=== PATIENT | female | born 1985 ===

== ENCOUNTER 2020-05-25 22:47 | Outpatient (CLI) | payer OTHER ==
[2020-05-25 23:21] VITALS: BP 116/75
== END 2020-05-26 00:35 | disposition home or self-care (01) ==
LOC: TRG 22:47 → APU 23:25 → TRG 05-26 00:35
PROVIDERS: ATTEND Obstetrics & Gynecology
DX: O36.8130 Decreased fetal movements, third trimester, not applicable or unspecified (principal); Z3A.39 39 weeks gestation of pregnancy
CPT/HCPCS: 59025

== ENCOUNTER 2020-06-22 11:18 | Outpatient (CLI) | payer OTHER ==
[2020-06-22 11:56] VITALS: BP 113/84
== END 2020-06-22 12:38 | disposition home or self-care (01) ==
LOC: TRG 11:18 → APU 11:18 → TRG 12:38
PROVIDERS: ATTEND Obstetrics & Gynecology
DX: O62.4 Hypertonic, incoordinate, and prolonged uterine contractions (principal); Z3A.38 38 weeks gestation of pregnancy
CPT/HCPCS: 59025

== ENCOUNTER 2020-06-23 08:01 | Inpatient (IN) | payer OTHER ==
[2020-06-23] MEDS ORDERED: ePHEDrine SULFATE 50 MG/1 ML INJ IV PRN ×2 (08:48→20:26)
[2020-06-23] MEDS ORDERED: LIDOCAINE (2%) 20 MG/1 ML VIAL 20 ML MDV INFILTRATI NR (08:48)
[2020-06-23] MEDS ORDERED: TERBUTALINE 1 MG/1 ML INJ SUB-Q PRN (08:48)
[2020-06-23] MEDS ORDERED: OXYTOCIN DRIP 30 UNITS/500 ML BAG IV SCH (09:00)
--- NOTE | 2020-06-23 10:22 | Ultrasound Report ---
Limited OB ultrasound INDICATION: Twin gestation, evaluate position FINDINGS: This is a twin gestation. Both fetuses are in cephalic presentation. heart rate for twin A is 1 41 bpm and twin B is 126 bpm. IMPRESSION: Both of the fetuses are in cephalic presentation. Signer Name: Gerson Espinoza MD Signed: 06/23/2020 10:18 AM Workstation Name: [id number]
--- NOTE | 2020-06-23 10:23 | History and Physical Report ---
History of Present Illness Date of examination: 06/23/20 Date of admission: 06/23/20 Chief complaint: " I'm here for an induction" History of present illness: 35 y/o Tanzanian speaking female @ 39 wks presents today for an IOL r/t DI/DI twins. Pt denied LOF or VB. She admitted to active x 2 and denied any other complaints. Pt initiated her pnc @ [facility] @ 9.2 wks. She was co-managed by [facility] r/t twin gestation. She has had an uneventful preg other than ASCUS with + HPV and a failed 1hr gtt but pos 3 hr gtt. Pt has a hx of anemia hgb 8.8 on 06/02/20. Pt received Fe for anemia and will undergo colpo pp. Neg surgical /social hx. Family hx of HTN and DM. She was admitted to L&D for an IOL. POC was notified. 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 Family/Genetic History: hypertension Social history: no significant social history - Obstetrical History Expected Date of Delivery: 06/30/20 Actual Gestation: 39 Week(s) 0 Day(s) : 4 Para: 2 Hx # Term Pregnancies: 2 Number of Pregnancies: 0 Spontaneous Abortions: 1 Induced : 0 Number of Living Children: 2 Medications and Allergies Allergies Allergy/AdvReac Type Severity Reaction Status Date / Time No Known Allergies Allergy Unverified 05/25/20 23:54 Active Meds: Active Medications Ephedrine Sulfate (Ephedrine Sulfate 50 Mg/1 Ml Inj) 10 mg IV Q2M PRN PRN Reason: Hypotension Oxytocin/Sodium Chloride (Pitocin/Ns 30 Unit/500ml) 30 units in 500 mls @ 2 mls/hr IV TITR REZA; Protocol Lactated Ringer's (Lactated Ringers) 1,000 mls @ 125 mls/hr IV DIRECT REZA Lidocaine (Lidocaine (2%) 20 Mg/1 Ml Vial 20 Ml Mdv) 20 ml INFILTRATI ONCE NR Stop: 06/23/20 12:00 Mineral Oil (Mineral Oil 30 Ml Oral Liqd) 30 ml PO QHS PRN PRN Reason: Constipation Terbutaline Sulfate (Terbutaline 1 Mg/1 Ml Inj) 0.25 mg SUB-Q ONCE PRN PRN Reason: Hyperstimulation/Hypertonicity Review of Systems All systems: negative Eyes: deferred Ears, nose, mouth and throat: deferred Breasts: normal Rectal Exam: deferred - Vital Signs Vital signs: Vital Signs Pulse Pulse Ox 106 H 100 06/23/20 08:57 06/23/20 08:57 Temp Pulse Resp BP Pulse Ox 98.2 F 86 16 118/83 100 06/23/20 08:59 06/23/20 09:37 06/23/20 08:59 06/23/20 09:37 06/23/20 09:37 - Physical Exam Breasts: Positive: normal Abdomen: Positive: normal appearance, soft, normal bowel sounds, other (gravid) Genitourinary (Female): Positive: normal external genitalia, normal perenium Vulva: both: normal Vagina: Positive: normal moisture Uterus: Positive: enlarged, normal contour, other (gravid) Adnexa: both: normal Anus/Rectum: Positive: normal perianal skin Extremities: Positive: normal - Obstetrical FHR: auscultation normal, category 1 Uterine Contraction Monitor Mode: External Cervical Dilatation: 4.5 Cervical Effacement Percentage: 70 station: -2 Uterine Contraction Frequency (min): irreg Uterine Contraction Pattern: Irregular Uterine Tone Measurement Phase: Resting Uterine Contraction Intensity: Mild Results All other labs normal. Assessment and Plan A:IUP@ 39 wks DI/DI vertex twins Anemia GBS neg P: Admit to L&D for IOL US for position Continuous monitoring Start Pitocin per orders/protocal once position identified Anticipate Will notify POC - Patient Problems (1) Term Current Visit: Yes Status: Acute (2) Twin gestation in third trimester Current Visit: Yes Status: Acute (3) Anemia Current Visit: Yes Status: Acute
[2020-06-23] MEDS: LACTATED RINGERS 1,000 ML IV SCH ×2 (10:51→18:38)
[2020-06-23] MEDS ORDERED: SODIUM CHLORIDE 0.9% 500 ML 500 ML IV ONE (11:27)
[2020-06-23 11:33] LABS: Hematocrit 29.7 % (30.3-42.9); Hemoglobin 9.2 gm/dl (10.1-14.3); Mean Corpuscular HGB Conc 31 % (30-34); Mean Corpuscular Volume 74 fl (79-97); Platelet Count 252 K/mm3 (140-440); Red Blood Count 4.04 M/mm3 (3.65-5.03); Red Cell Distribution Width 17.9 % (13.2-15.2)
--- NOTE | 2020-06-23 17:26 | Progress Note ---
Subjective - Subjective Date of service: 06/23/20 Interval history: AROM clear fluid cervix 6cm/90/-1 tracing category 1x2 continue current management IUPC, FSE placed with no complication Ajit Berrios MD Objective - Vital Signs Vital Signs: Vital Signs - 12hr 06/23/20 06/23/20 06/23/20 08:57 08:58 08:59 Temperature 98.2 F Pulse Rate 106 H 96 H 91 H Respiratory 16 Rate Blood Pressure 120/90 Blood Pressure 120/90 [Left] O2 Sat by Pulse 100 100 Oximetry 06/23/20 06/23/20 06/23/20 09:02 09:07 09:12 Temperature Pulse Rate 91 H 109 H 98 H Respiratory Rate Blood Pressure Blood Pressure [Left] O2 Sat by Pulse 100 100 99 Oximetry 06/23/20 06/23/20 06/23/20 09:17 09:18 09:22 Temperature Pulse Rate 78 92 H 94 H Respiratory Rate Blood Pressure Blood Pressure [Left] O2 Sat by Pulse 78 L 93 99 Oximetry 06/23/20 06/23/20 06/23/20 09:27 09:32 09:37 Temperature Pulse Rate 94 H 99 H 86 Respiratory Rate Blood Pressure 118/83 Blood Pressure [Left] O2 Sat by Pulse 99 100 100 Oximetry 06/23/20 11:52 Temperature Pulse Rate 84 Respiratory Rate Blood Pressure Blood Pressure [Left] O2 Sat by Pulse 99 Oximetry - Labs Labs: Abnormal Labs 06/23/20 06/23/20 10:50 10:50 Hgb 9.2 L Hct 29.7 L MCV 74 L MCH 23 L RDW 17.9 H Crossmatch See Detail Laboratory Results - last 24 hr 06/23/20 06/23/20 10:50 10:50 WBC 7.7 RBC 4.04 Hgb 9.2 L Hct 29.7 L MCV 74 L MCH 23 L MCHC 31 RDW 17.9 H Plt Count 252 Blood Type A POSITIVE Antibody Screen Negative Crossmatch See Detail
[2020-06-23] MEDS ORDERED: LIDOCAINE (2%) 20 MG/1 ML VIAL 20 ML MDV INFILTRATI ONE (19:19)
[2020-06-23] MEDS ORDERED: MINERAL OIL 30 ML ORAL LIQD ONE (19:19)
--- NOTE | 2020-06-23 20:22 | Anesthesia Day of Surgery ---
Anesthesia Day of Surgery - Day of Surgery Patient Examined: Yes Patient H&P Reviewed: Yes Patient is NPO: Yes Beta Blockers: No Cardiac Clearance: No Pulmonary Clearance: No Babak's Test: N/A
--- NOTE | 2020-06-23 20:24 | Anesthesia Consultation ---
Anesthesia Consult and Med Hx Date of service: 06/23/20 - Airway Anesthetic Teeth Evaluation: Good ROM Head & Neck: Adequate Mental/Hyoid Distance: Adequate Mallampati Class: Class II Intubation Access Assessment: Probably Good - Pulmonary Exam CTA: Yes - Cardiac Exam Cardiac Exam: RRR - Pre-Operative Health Status ASA Pre-Surgery Classification: ASA2 Proposed Anesthetic Plan: Epidural - Pulmonary Hx Smoking: No Hx Asthma: No Hx Respiratory Symptoms: No SOB: No COPD: No Home Oxygen Therapy: No Hx Pneumonia: No Hx Sleep Apnea: No - Cardiovascular System Hx Hypertension: No Hx Coronary Artery Disease: No Hx Heart Attack/AMI: No Hx Angina: No Hx Percutaneous Transluminal Coronary Angioplasty (PTCA): No Hx Cardia Arrhythmia: No Hx Pacemaker: No Hx Internal Defibrillator: No Hx Valvular Heart Disease: No Hx Heart Murmur: No Hx Peripheral Vascular Disease: No - Central Nervous System Hx Neuromuscular Disorder: No Hx Seizures: No CVA: No Hx Back Pain: No Hx Psychiatric Problems: No - Gastrointestinal Hx Ulcer: No Hx Gastroesophageal Reflux Disease: No - Endocrine Hx Renal Disease: No Hx End Stage Renal Disease: No Hx Cirrhosis: No Hx Liver Disease: No Hx Insulin Dependent Diabetes: No Hx Non-Insulin Dependent Diabetes: No Hx Thyroid Disease: No Hx Hypothyroidism: No Hx Hyperthyroidism: No - Hematic Hx Anemia: No Hx Sickle Cell Disease: No - Other Systems Hx Alcohol Use: No Hx Substance Use: No Hx Cancer: No Hx Obesity: Yes
[2020-06-23] MEDS ORDERED: NALOXONE 2 MG/2 ML INJ IV PRN (20:26)
--- NOTE | 2020-06-23 20:26 | Progress Note ---
Labor Epidural - Labor Epidural Start Time: 19:58 Stop Time: 20:10 Performed by:: KAREN TAVAREZ Procedure: Patient is requesting a laboring epidural for laboring pain. Patient IDed, H&P reviewed, all questions and concerns were answered, and consent was signed. Timeout was performed at bedside. Patient in sitting position. Sterile prep and drape was performed. [3] ml of 1% lidocaine skin wheal at L[3]- L [4]. 18- gauge Tuohy epidural needle was advanced to loss of resistance with air technique. Negative CSF negative blood. Epidural catheter advanced to [12] centimeters. [NEGATIVE] Aspiration [NEGATIVE] test dose. Sterile dressing applied. Patient tolerated procedure.
[2020-06-23] MEDS ORDERED: OXYTOCIN 10 UNIT/1 ML INJ ONE (20:58)
[2020-06-23] MEDS ORDERED: fentaNYL-BUPIV 2 MCG/ML-0.125% 200 MCG/100 ML BAG EPIDURAL SCH (21:00)
[2020-06-23] MEDS ORDERED: METHYLERGONOVINE MALEATE 0.2 MG/ML VIAL IM ONE ×2 (21:23→22:35)
[2020-06-23] MEDS ORDERED: diphenhydrAMINE 25 MG CAP PO PRN (21:49)
[2020-06-23] MEDS ORDERED: MAGNESIUM HYDROXIDE (MOM) ORAL LIQD UDC PO PRN (21:49)
[2020-06-23] MEDS ORDERED: ACETAMINOPHEN 325 MG TAB PO PRN (21:49)
[2020-06-23] MEDS ORDERED: ONDANSETRON 4 MG/2 ML INJ IV PRN (21:49)
[2020-06-23] MEDS ORDERED: KETOROLAC 30 MG/1 ML INJ IV PRN (21:49)
[2020-06-23] MEDS ORDERED: LANOLIN/ZINC/DIMETHICONE (LANSINOH) 7 GM TP PRN (21:49)
[2020-06-23] MEDS ORDERED: PROMETHAZINE 25 MG RECT SUPP PR PRN (21:49)
[2020-06-23] MEDS ORDERED: PROMETHAZINE 25 MG TAB PO PRN (21:49)
[2020-06-23] MEDS ORDERED: WITCH HAZEL/ GLYCERIN PAD TP PRN (21:49)
--- NOTE | 2020-06-23 21:49 | Post Anesthesia Evaluation ---
- Post Anesthesia Evaluation Patient Participated: Yes Airway Patent: Yes Stable Respiratory Function: Yes Nausea/Vomiting: No Temp > 96.8F: Yes Pain Manageable: Yes Adequeate Hydration: Yes Anesthesia Complications: No Block Receding Appropriately: Yes Patient on Ventilator: No
[2020-06-23] MEDS ORDERED: MINERAL OIL 30 ML ORAL LIQD PO PRN (22:00)
--- NOTE | 2020-06-23 22:25 | Procedure Note ---
OB Delivery Note - Delivery Date of Delivery: 06/23/20 Surgeon: CARY COLIN Estimated blood loss: 300cc - Vaginal Delivery presentation: vertex (Baby A vertex. Baby B vertex) Delivery position: OA Intrapartum events: none Delivery augmentation: pitocin Delivery monitor: external FHT, external uterine, internal FHT, internal uterine Route of delivery: ( twin gestation) Delivery placenta: manual Delivery cord: 3 umbilical vessels Episiotomy: none Delivery laceration: none Delivery comments: Twin gestation, vertex/vertex.Patient received excellent spinal anesthesia. She was then noted to be complete and was taken to the OR with double set up. Patient pushed to deliver a viable female (Baby A) over an intact perineum. Spontaneous cry at delivery. Cord clamped and cut and baby handed to waiting NICU staff. Baby B confirmed cephalic with BBOW. AROM clear. FHT confirmed 130-140 through second stage with doppler/US. Patient pushed to deliver baby B with no complications. Nuchal cord reduced at delivery.Spontaneous cry at delivery. Cord clamped and cut and baby handed to waiting NICU staff. An intact placenta with three vessel cordx2 delivered manually. The uterus cleared of all clots and debris. Firm fundus, no lacerations excellent hemostasis. all sponge, needle and instrument counts correctx2 Mom and babies to . No complications. Ajit Colin MD
[2020-06-23] MEDS ORDERED: CARBOPROST TROMETHAMINE 250 MCG/1 ML INJ IM ONE (22:54)
[2020-06-23] MEDS ORDERED: miSOPROStol 200 MCG TAB ONE ×2 (22:54)
[2020-06-23] MEDS ORDERED: CARBOPROST TROMETHAMINE 250 MCG/1 ML INJ IM STA (22:55)
[2020-06-23] MEDS ORDERED: SODIUM CHLORIDE 0.9% 1000 ML 1,000 ML ONE (23:00)
[2020-06-23 23:06] LABS: Hematocrit 27.4 % (30.3-42.9); Hemoglobin 8.6 gm/dl (10.1-14.3)
--- NOTE | 2020-06-24 00:30 | Event Note ---
Date: 06/24/20 I was called for hypotension and acute blood loss. At bedside, patient had lower uterine atony and ~500ml blood clots expressed form the uterus. Intermittent atony noted as I gave bimanual massage. I called for help. I called for two IV lines to be placed and fluids to be running wide open. I called for two units of blood stat. I asked for anesthesia to be called and Abby Bueno CNA was immediatly at bedside. Patient Jared BP was 62/32 and pulse was 118. I called for stat cbc. She was given methergine 0.2mg IMx2 doses, Hemabatex2 doses and cytotec 800mg CT. She was placed in the dorsal lithotomy position. Exam of the cervix and vagina revealed no lacerations. I packed the vagina to tamponade the lower uterine segment for over an hour. Patient remained AAOx3 and hemodynamically stable throughout. Patient had a unit of PRBC's running and CBC had resulted at HB of 8.6. When the vaginal pack was removed there was no acute bleeding and the uterus was firm. Weight of total blood clot and chucks was equivocal to 1800ml. Plan for transfusion of two units PRBCS and repat CBC in AM. Will continue to monitor closely. Ajit Berrios MD
[2020-06-24] MEDS: HYDROcodone/ACETAMINOPHEN 5-325 MG TAB PO PRN ×2 (00:38→07:37)
[2020-06-24] MEDS ORDERED: fentaNYL 100 MCG/2 ML INJ IV ONE (01:32)
[2020-06-24] MEDS ORDERED: LOPERAMIDE 2 MG CAP PO PRN (01:32)
[2020-06-24] MEDS ORDERED: fentaNYL 100 MCG/2 ML INJ ONE (01:32)
[2020-06-24] MEDS: IBUPROFEN 600 MG TAB PO SCH ×3 (05:54→21:37)
[2020-06-24] MEDS ORDERED: PRENATAL VIT27-FE FUMARATE-FOLIC ACID VIT TAB PO SCH (10:00)
--- NOTE | 2020-06-24 12:05 | Progress Note ---
Assessment and Plan A: PP Day #1 s/p vaginal delivery of Twins Delayed Hemorrhage P: Follow Routine Orders Monitor Lochia and H/H Subjective - Subjective Date of service: 06/24/20 Patient reports: appetite normal, voiding normally, pain well controlled, flatus, ambulating normally, other (Denies Dizziness, Fatigue, HAs.. Admits to diarrhea after blood transfusion that has since resolved) [place]: doing well Objective - Vital Signs Latest vital signs: Vital Signs Temp Pulse Resp BP BP Pulse Ox 06/24/20 09:50 98.1 F 82 16 122/60 100 06/24/20 07:25 87 99 06/24/20 07:22 98.1 F 17 06/24/20 07:20 74 114/59 99 06/24/20 05:41 63 120/77 06/24/20 05:30 98.1 F 63 18 120/77 98 06/24/20 05:11 68 120/78 06/24/20 05:00 98.1 F 71 18 118/75 98 06/24/20 04:56 71 118/75 06/24/20 04:41 64 136/68 06/24/20 04:30 98.3 F 76 18 130/91 98 06/24/20 04:27 76 130/91 06/24/20 04:11 68 130/80 06/24/20 04:00 98.3 F 61 20 122/72 99 06/24/20 03:56 61 122/72 06/24/20 03:42 71 128/75 06/24/20 03:30 98.2 F 67 18 133/79 97 06/24/20 03:26 67 133/79 06/24/20 03:11 64 135/78 06/24/20 03:00 98.2 F 68 20 136/81 98 06/24/20 02:56 68 136/81 06/24/20 02:51 63 136/79 06/24/20 02:41 97.9 F 67 18 141/79 97 06/24/20 02:26 97.9 F 74 20 121/85 98 06/24/20 02:06 74 121/85 06/24/20 02:00 98.1 F 74 20 121/85 98 06/24/20 01:44 80 99 06/24/20 01:41 78 129/86 06/24/20 01:39 78 98 06/24/20 01:34 72 98 06/24/20 01:33 98.0 F 99 H 20 135/75 97 06/24/20 01:30 80 92 06/24/20 01:29 82 99 06/24/20 01:26 68 135/75 06/24/20 01:24 69 100 06/24/20 01:19 69 100 06/24/20 01:14 75 100 06/24/20 01:11 75 142/78 06/24/20 01:09 80 98 06/24/20 01:04 76 100 06/24/20 01:03 97.9 F 83 18 118/72 98 06/24/20 00:59 80 100 06/24/20 00:56 75 143/67 06/24/20 00:54 79 100 06/24/20 00:49 76 100 06/24/20 00:44 78 99 06/24/20 00:41 83 118/72 06/24/20 00:39 80 99 06/24/20 00:34 74 99 06/24/20 00:33 98.2 F 69 18 120/74 98 06/24/20 00:30 98.2 F 06/24/20 00:29 87 99 06/24/20 00:26 69 120/74 06/24/20 00:24 77 98 06/24/20 00:19 75 98 06/24/20 00:14 88 98 06/24/20 00:11 81 114/71 06/24/20 00:09 89 100 06/24/20 00:07 73 115/72 06/24/20 00:04 85 100 06/24/20 00:03 98.1 F 73 20 115/72 97 06/23/20 23:56 79 120/73 06/23/20 23:55 82 97 06/23/20 23:50 93 H 98 06/23/20 23:45 82 96 06/23/20 23:40 97 H 97 06/23/20 23:38 82 117/61 06/23/20 23:36 82 117/60 06/23/20 23:35 87 97 06/23/20 23:34 86 119/57 06/23/20 23:33 98.1 F 85 20 117/60 97 06/23/20 23:32 87 131/61 06/23/20 23:30 95 H 134/63 97 06/23/20 23:28 104 H 149/68 06/23/20 23:27 72 141/88 06/23/20 23:25 133 H 142/84 98 06/23/20 23:22 76 126/70 06/23/20 23:20 93 H 121/67 100 06/23/20 23:18 98.5 F 90 20 121/69 98 06/23/20 23:16 92 H 121/69 06/23/20 23:15 84 100 06/23/20 23:14 84 122/62 06/23/20 23:12 81 117/66 06/23/20 23:11 83 118/67 06/23/20 23:10 82 100 06/23/20 23:06 87 114/69 06/23/20 23:05 89 115/58 100 06/23/20 23:03 108 H 115/75 06/23/20 23:00 113 H 126/64 100 06/23/20 22:58 96 H 80 L 06/23/20 22:55 82 101/50 100 06/23/20 22:48 59 L 62/32 06/23/20 22:47 65 65/36 06/23/20 22:41 100 H 100/55 06/23/20 22:26 82 104/68 06/23/20 22:11 86 105/69 06/23/20 21:56 78 104/58 06/23/20 21:44 108 H 133/60 06/23/20 20:19 90 111/59 06/23/20 20:17 95 H 124/59 100 06/23/20 20:15 108 H 130/80 06/23/20 20:13 107 H 82 L 06/23/20 20:12 109 H 130/80 100 06/23/20 20:10 92 H 129/81 06/23/20 20:09 95 H 124/82 06/23/20 20:07 92 H 100 06/23/20 20:06 109 H 132/85 06/23/20 20:05 107 H 125/82 06/23/20 20:03 70 84 06/23/20 20:02 85 92 06/23/20 19:58 95 H 93 06/23/20 19:54 93 H 96 06/23/20 19:49 91 06/23/20 19:44 84 99 06/23/20 19:39 91 H 99 06/23/20 19:34 78 99 06/23/20 19:29 87 100 06/23/20 19:24 77 100 06/23/20 19:19 81 100 06/23/20 19:15 98.3 F 06/23/20 19:14 84 98 06/23/20 19:09 84 98 06/23/20 19:05 54 L 94 06/23/20 19:04 88 133/76 94 Intake and Output 06/23/20 06/24/20 06/24/20 22:59 06:59 14:59 Intake Total 991.667 250 Output Total 75 600 300 Balance 916.667 -350 -300 Intake: IV 991.667 Lactated Ringers 1,000 ml 966.667 @ 125 mls/hr IV DIRECT REZA Rx#:[id number] PITOCin/NS 30 UNIT/500ML 25 30 units In 500 ml @ 2 mls/hr IV TITR REZA Rx#: [id number] Blood Product 250 Leukoreduced Red Blood 0 Cells Unit [id number] Leukoreduced Red Blood 250 Cells Unit [id number] Output: Urine 75 600 300 Indwelling Catheter 75 600 300 Other: Total, Output Amount 75 150 300 Estimated Blood Loss 350 350 - Exam Breasts: Present: normal Cardiovascular: Present: Regular rate Lungs: Present: Clear to auscultation, Normal air movement Abdomen: Present: normal appearance, soft, normal bowel sounds Uterus: Present: normal, firm, fundal height below umbilicus Extremities: Present: normal - Labs Labs: Abnormal lab results 06/23/20 06/23/20 Range/Units 10:50 22:59 Hgb 8.6 L (10.1-14.3) gm/dl Hct 27.4 L (30.3-42.9) % Crossmatch See Detail
[2020-06-24 15:52] LABS: Hematocrit 30.4 % (30.3-42.9)
--- NOTE | 2020-06-24 16:05 | Progress Note ---
Subjective Date of service: 06/24/20 Principal diagnosis: c/o headache Interval history: Called by RN to see patient for complaint of headache. Patient was sitting in bed in no apparent distress. Describes her headache as frontal headache with pain "running down her right side to her hip". Denies neck stiffness, light sensitivity, nausea or vomiting. Able to sit up and pain not relieved when lying flat. Physical exam WNL'S. This doesn't seem as PDPH but will continue to follow. Please continue pain medications. Objective - Constitutional Vitals: Vital Signs - 12hr 06/24/20 06/24/20 06/24/20 03:56 04:00 04:11 Temperature 98.3 F Pulse Rate 61 61 68 Respiratory 20 Rate Blood Pressure 122/72 122/72 130/80 Blood Pressure [Left] O2 Sat by Pulse 99 Oximetry 06/24/20 06/24/20 06/24/20 04:27 04:30 04:41 Temperature 98.3 F Pulse Rate 76 76 64 Respiratory 18 Rate Blood Pressure 130/91 130/91 136/68 Blood Pressure [Left] O2 Sat by Pulse 98 Oximetry 06/24/20 06/24/20 06/24/20 04:56 05:00 05:11 Temperature 98.1 F Pulse Rate 71 71 68 Respiratory 18 Rate Blood Pressure 118/75 118/75 120/78 Blood Pressure [Left] O2 Sat by Pulse 98 Oximetry 06/24/20 06/24/20 06/24/20 05:30 05:41 07:20 Temperature 98.1 F Pulse Rate 63 63 74 Respiratory 18 Rate Blood Pressure 120/77 120/77 114/59 Blood Pressure [Left] O2 Sat by Pulse 98 99 Oximetry 06/24/20 06/24/20 06/24/20 07:22 07:25 09:50 Temperature 98.1 F 98.1 F Pulse Rate 87 82 Respiratory 17 16 Rate Blood Pressure Blood Pressure 122/60 [Left] O2 Sat by Pulse 99 100 Oximetry - Labs CBC & Chem 7: 06/23/20 22:59 Labs: Abnormal lab results 06/23/20 06/23/20 06/23/20 Range/Units 10:50 22:59 Unknown Hgb 8.6 L (10.1-14.3) gm/dl Hct 27.4 L (30.3-42.9) % Coronavirus (PCR) Positive A (Negative) Crossmatch See Detail
[2020-06-24] MEDS: DOCUSATE SODIUM 100 MG CAP PO SCH ×2 (18:09→23:56)
[2020-06-24] MEDS: SENNOSIDES/DOCUSATE SODIUM 8.6/50 MG TAB PO SCH ×2 (18:09→23:56)
[2020-06-25] MEDS: IBUPROFEN 600 MG TAB PO SCH ×2 (04:43→12:00)
--- NOTE | 2020-06-25 10:40 | Progress Note ---
Assessment and Plan PPD # 2 A: S/P with delayed pp hemorrhage (twins) P: D/C home today if stable POC agrees with plan - Patient Problems (1) Term Current Visit: Yes Status: Acute (2) Twin gestation in third trimester Current Visit: Yes Status: Acute (3) Anemia Current Visit: Yes Status: Acute Subjective - Subjective Date of service: 06/25/20 Principal diagnosis: s/p with pp hemorrhage (twins) Interval history: 35 y/o Malay speaking female @ 39 wks presents today for an IOL r/t DI/DI twins. Pt denied LOF or VB. She admitted to active x 2 and denied any other complaints. Pt initiated her pnc @ [facility] @ 9.2 wks. She was co-managed by [facility] r/t twin gestation. She has had an uneventful preg other than ASCUS with + HPV and a failed 1hr gtt but pos 3 hr gtt. Pt has a hx of anemia hgb 8.8 on 06/02/20. Pt received Fe for anemia and will undergo colpo pp. Neg surgical /social hx. Family hx of HTN and DM. She was admitted to L&D for an IOL. POC was notified. Patient reports: appetite normal, voiding normally, pain well controlled, ambulating normally, other (denies any complaints. Scant lochia noted) [place]: doing well, bottle feeding Objective - Vital Signs Latest vital signs: Vital Signs Temp Pulse Resp BP BP Pulse Ox 06/25/20 08:57 97.7 F 67 18 98/66 100 06/25/20 05:43 18 06/25/20 04:43 18 06/25/20 00:00 98.6 F 74 16 102/69 06/24/20 22:37 18 06/24/20 21:37 18 06/24/20 19:49 98.5 F 76 18 112/72 98 06/24/20 16:23 98.4 F 70 18 96/58 98 Intake and Output 06/24/20 06/25/20 06/25/20 22:59 06:59 14:59 Intake Total 540 300 Balance 540 300 Intake: Oral 240 Intake, Free Water 300 300 Other: Total, Intake Amount 240 # Voids Void 1 1 - Exam Breasts: Present: normal Abdomen: Present: normal appearance, soft, normal bowel sounds Vulva: both: normal Uterus: Present: normal, firm, fundal height below umbilicus Extremities: Present: normal Incision: Present: intact - Labs Labs: Abnormal lab results 06/23/20 06/24/20 Range/Units Unknown 14:23 Hgb 10.0 L (10.1-14.3) gm/dl Coronavirus (PCR) Positive A (Negative)
--- NOTE | 2020-06-25 10:55 | Discharge Summary ---
Providers - Providers Date of Admission: 06/23/20 08:02 Date of discharge: 06/25/20 Attending physician: CARY COLIN MD Primary care physician: CARY COLIN MD Hospitalization Reason for admission: induction of labor, IUP at term, other (twins) Delivery: Episiotomy: none Laceration: none Other procedures: other (vag packing for pp hemorrhage and PRBCs) complications: transfusion Discharge diagnosis: IUP at term delivered [place] baby: twins Hospital course: Pt was admitted for an IOL r/t twins. She had a with a delayed pp hemorrhage was transfused with 3U PRBCs and had vag packing. Pt was d/c'd home in stable condition and w/o complaints. See H&P, Delivery summary, and PP notes. Condition at discharge: Stable Disposition: DC-01 TO HOME OR SELFCARE - Discharge Diagnoses (1) Term Status: Acute (2) Twin gestation in third trimester Status: Acute (3) Anemia Status: Acute Plan - Discharge Medications Prescriptions: Ibuprofen [Motrin 600 MG tab] 600 mg PO Q6H #30 tablet - Provider Discharge Summary Activity: no sex for 6 weeks, no heavy lifting 4 weeks, no strenuous exercise Diet: routine Instructions: routine Additional instructions: [] Smoking cessation referral if applicable(refer to patient education folder for contact #) [] Refer to [facility] Booklet Call your doctor immediately for: * Fever > 100.5 * Heavy vaginal bleeding ( >1 pad per hour) * Severe persistent headache * Shortness of breath * Reddened, hot, painful area to leg or breast * Drainage or odor from incision. * Keep incision clean and dry at all times and follow doctor's instructions regarding bathing/showering - Follow up plan Follow up: CARY COLIN MD [Primary Care Provider] - 6 Weeks Forms: [facility] Discharge Summary
[2020-06-25] MEDS: DOCUSATE SODIUM 100 MG CAP PO SCH (12:00)
[2020-06-25 15:06] VITALS: BP 110/77
== END 2020-06-25 14:25 | disposition home or self-care (01) | DRG 806 ==
LOC: TRG 08:01 → LD 08:02 → TRG 08:48 → OB 06-24 08:58
PROVIDERS: ADMIT Obstetrics & Gynecology; ATTEND Obstetrics & Gynecology
PROC: 10E0XZZ Delivery of Products of Conception, External Approach (ICD-10-PCS; principal; 2020-06-23)
PROC: 10907ZC Drainage of Amniotic Fluid, Therapeutic from Products of Conception, Via Natural or Artificial Opening (ICD-10-PCS; 2020-06-23)
PROC: 10H07YZ Insertion of Other Device into Products of Conception, Via Natural or Artificial Opening (ICD-10-PCS; 2020-06-23)
PROC: 3E0R3BZ Introduction of Anesthetic Agent into Spinal Canal, Percutaneous Approach (ICD-10-PCS; 2020-06-23)
PROC: 00HU33Z Insertion of Infusion Device into Spinal Canal, Percutaneous Approach (ICD-10-PCS; 2020-06-23)
PROC: 30233N1 Transfusion of Nonautologous Red Blood Cells into Peripheral Vein, Percutaneous Approach (ICD-10-PCS; 2020-06-23)
DX: O30.003 Twin pregnancy, unspecified number of placenta and unspecified number of amniotic sacs, third trimester (principal); O72.1 Other immediate postpartum hemorrhage; Z37.2 Twins, both liveborn; D62 Acute posthemorrhagic anemia; Z3A.39 39 weeks gestation of pregnancy; O99.214 Obesity complicating childbirth; E66.9 Obesity, unspecified; O69.81X2 Labor and delivery complicated by cord around neck, without compression, fetus 2; O26.53 Maternal hypotension syndrome, third trimester; O74.5 Spinal and epidural anesthesia-induced headache during labor and delivery; O99.02 Anemia complicating childbirth; Z20.822 Contact with and (suspected) exposure to COVID-19
CPT/HCPCS: 36415; 76815; 85014; 85018; 85027; 86850; 86900; 86901; 86920; G0378; J0690; J2210; J2405; J2590; J3010; J7040; J7120; P9016; U0003